=== PATIENT | male | born 1945 | race Caucasian/White ===

== ENCOUNTER 2021-08-26 02:15 | Emergency (ER) | payer MEDICARE, OTHER ==
[~2021-08-26 02:15] MED LIST: ACETAMINOPHEN-1 EAC1 PO; CLARITIN10 M2 PO; COREG6.25 MG PO; FLONASE 0.05% N16 GM; GLUCOPHAGE500 MG PO; IMDUR ER TAB 6060 MG PO; K-TAB ER10 MEQ PO; LASIX 40 MG TAB40 MG PO; LIPITOR80 MG PO; MUCINEX600 MG PO; NITROSTAT0.4 MG SL; NORVASC5 MG PO; OMEGA-31000 MG PO; PLAVIX75 MG PO; PROAIR HFA8.5 GM INH; PROTONIX 40 MG40 M1 PO; SINGULAIR10 MG PO
[2021-08-26 03:35] LABS: HEMOGLOBIN 14.2 gm/dl (14.0-17.5); RED BLOOD COUNT 4.53 M/UL (4.20-5.50); WHITE BLOOD COUNT 10.8 K/UL (4.5-11.0)
[2021-08-26 03:37] LABS: BUN/CREATININE RATIO 19 (0-10)
[2021-08-26] MEDS ORDERED: DELSYM30 MG/5 ML PO (05:34)
[2021-08-26] MEDS ORDERED: FLONASE 0.05% N16 GM (05:34)
[2021-08-26] MEDS ORDERED: DOXYCYCLINE HY100 M2 PO (05:34)
[2021-08-26] MEDS ORDERED: ZYRTEC10 MG PO (05:34)
== END 2021-08-26 05:50 | disposition home or self-care (01) ==
LOC: ER1 02:15
PROVIDERS: Physician Assistant Medical
DX: J44.1 Chronic obstructive pulmonary disease with (acute) exacerbation (principal); I11.0 Hypertensive heart disease with heart failure; I50.9 Heart failure, unspecified; E78.5 Hyperlipidemia, unspecified; F17.210 Nicotine dependence, cigarettes, uncomplicated; Z90.49 Acquired absence of other specified parts of digestive tract; Z95.1 Presence of aortocoronary bypass graft; Z20.822 Contact with and (suspected) exposure to COVID-19
CPT/HCPCS: 36600; 71045; 80053; 82550; 82553; 82803; 83605; 83874; 83880; 84484; 85025; 85610; 87040; 93005; 94664; 96374; 99284; J1940; U0002

== ENCOUNTER 2021-12-18 16:23 | Inpatient (IN) | payer MEDICARE, OTHER ==
[~2021-12-18] VITALS: Ht 182.9 cm; Wt 90.7 kg
[~2021-12-18 16:23] MED LIST changes: +DELSYM30 MG/5 ML PO; +DOXYCYCLINE HY100 M2 PO; -LASIX 40 MG TAB40 MG PO; +LASIX20 MG PO; +ZYRTEC10 MG PO
[2021-12-18 17:44] LABS: HEMOGLOBIN 16.2 gm/dl (14.0-17.5); RED BLOOD COUNT 5.18 M/UL (4.20-5.50); WHITE BLOOD COUNT 12.9 K/UL (4.5-11.0)
[2021-12-18 19:05] LABS: BUN/CREATININE RATIO 23 (0-10)
[2021-12-19 09:06] LABS: HEMOGLOBIN 14.5 gm/dl (14.0-17.5); RED BLOOD COUNT 4.88 M/UL (4.20-5.50)
[2021-12-19 09:15] LABS: WHITE BLOOD COUNT 16.2 K/UL (4.5-11.0)
[2021-12-19 09:25] LABS: BUN/CREATININE RATIO 27 (0-10)
[2021-12-19] MEDS ORDERED: GLIPIZIDE5 MG PO (11:33)
[2021-12-19] MEDS ORDERED: METOPROLOL SUCC25 MG PO (11:33)
[2021-12-19] MEDS ORDERED: FERROUS SULFAT325 MG PO (11:34)
[2021-12-19] MEDS ORDERED: SUCRALFATE1 GM PO (11:34)
[2021-12-19] MEDS ORDERED: ENTRESTO 49 MG1 EACH PO (11:34)
[2021-12-19] MEDS ORDERED: ALBUTEROL2.5 MG/3 M INH (11:35)
[2021-12-19] MEDS ORDERED: ROBAXIN 750 MG750 MG PO (11:35)
[2021-12-20 06:20] LABS: HEMOGLOBIN 13.3 gm/dl (14.0-17.5); RED BLOOD COUNT 4.43 M/UL (4.20-5.50); WHITE BLOOD COUNT 14.7 K/UL (4.5-11.0)
[2021-12-20 06:43] LABS: BUN/CREATININE RATIO 32 (0-10)
--- NOTE | 2021-12-20 08:43 | NUR ---
PATIENT STATED NITROGLYCERIN WAS EFFECTIVE IN REDUCING CHEST PAIN/DISCOMFORT. PATIENT STATED HE DIDN'T NEED ANOTHER TABLET.
[2021-12-21 07:54] LABS: HEMOGLOBIN 12.7 gm/dl (14.0-17.5); RED BLOOD COUNT 4.35 M/UL (4.20-5.50); WHITE BLOOD COUNT 15.7 K/UL (4.5-11.0)
[2021-12-21 08:46] LABS: BUN/CREATININE RATIO 33 (0-10)
--- NOTE | 2021-12-21 10:24 | NUR ---
1000- PATIENT STATED HE WANTED TO SPEAK WITH DR WARREN ABOUT GOING HOME TODAY. DR WARREN IN ROOM AT THIS TIME. STATED PATIENT WOULD HAVE TO SIGN OUT AMA IF HE WANTED TO DISCHARGE TODAY. PATIENT STATED HE WOULD SIGN OUT AMA. MD FERREIRA.
[2021-12-21] MEDS ORDERED: LASIX40 MG PO (13:32)
[2021-12-21] MEDS ORDERED: DOXYCYCLINE HY100 M2 PO (13:32)
[2021-12-21] MEDS ORDERED: ELIQUIS 5 MG TAB5 MG PO (13:32)
[2021-12-21] MEDS ORDERED: OMNICEF 300 MG300 MG PO (13:47)
[2021-12-21] MEDS ORDERED: COZAAR 25MG TAB25 MG PO (13:59)
[2021-12-21] MEDS ORDERED: METOPROLOL SUCC25 MG PO (13:59)
--- NOTE | 2021-12-21 14:35 | NUR ---
PATIENT LEAVING AMA AT THIS TIME. DISCHARGE INSTRUCTIONS GIVEN TO PATIENT AND EDUCATED ON LEAVING AMA. MD AWARE. PATIENT VERBALIZED UNDERSTANDING.
== END 2021-12-21 | disposition left against medical advice (07) | DRG 291 ==
LOC: ER1 16:23 → CDU 20:31 → MED SURG 4 20:31
PROVIDERS: Internal Medicine; Student in an Organized Health Care Education/Training Program; ADMIT Internal Medicine
PROC: B24BZZZ Ultrasonography of Heart with Aorta (ICD-10-PCS; principal; 2021-12-19)
DX: I11.0 Hypertensive heart disease with heart failure (principal); J96.21 Acute and chronic respiratory failure with hypoxia; J96.22 Acute and chronic respiratory failure with hypercapnia; I50.23 Acute on chronic systolic (congestive) heart failure; Z20.822 Contact with and (suspected) exposure to COVID-19; J15.9 Unspecified bacterial pneumonia; I47.1 Supraventricular tachycardia; J44.9 Chronic obstructive pulmonary disease, unspecified; E78.5 Hyperlipidemia, unspecified; E11.9 Type 2 diabetes mellitus without complications; I42.9 Cardiomyopathy, unspecified; F17.290 Nicotine dependence, other tobacco product, uncomplicated; D50.9 Iron deficiency anemia, unspecified; I71.4 Abdominal aortic aneurysm, without rupture; I48.91 Unspecified atrial fibrillation; Z79.01 Long term (current) use of anticoagulants; Z87.11 Personal history of peptic ulcer disease; Z86.718 Personal history of other venous thrombosis and embolism; Z95.1 Presence of aortocoronary bypass graft; Z95.5 Presence of coronary angioplasty implant and graft; Z90.49 Acquired absence of other specified parts of digestive tract; Z82.49 Family history of ischemic heart disease and other diseases of the circulatory system
CPT/HCPCS: ECHO; 36415; 36600; 71045; 71046; 80048; 80053; 82550; 82553; 82803; 82962; 83735; 83880; 84484; 85025; 85027; 86140; 93005; 93306; 93308; 94640; 94664; 94760; 96374; 96375; 96376; 99285; J0456; J0696; J1650; J1940; J2920; J3475; J7030; P9047; Q9957; U0002

== ENCOUNTER 2022-02-04 16:34 | Inpatient (IN) | payer MEDICARE, OTHER ==
[~2022-02-04] VITALS: Ht 188 cm; Wt 99.9 kg
[~2022-02-04 16:34] MED LIST changes: +COZAAR 25MG TAB25 MG PO; +ELIQUIS 5 MG TAB5 MG PO; +ENTRESTO 49 MG1 EACH PO; +FERROUS SULFAT325 MG PO; +LASIX40 MG PO; +METOPROLOL SUCC25 MG PO; -NITROSTAT0.4 MG SL; +OMNICEF 300 MG300 MG PO; -PROAIR HFA8.5 GM INH; -PROTONIX 40 MG40 M1 PO; +ROBAXIN 750 MG750 MG PO
[2022-02-04 19:08] LABS: HEMOGLOBIN 12.7 gm/dl (14.0-17.5); RED BLOOD COUNT 4.17 M/UL (4.20-5.50); WHITE BLOOD COUNT 20.3 K/UL (4.5-11.0)
[2022-02-05 07:03] LABS: HEMOGLOBIN 13.1 gm/dl (14.0-17.5); RED BLOOD COUNT 4.5 M/UL (4.20-5.50); WHITE BLOOD COUNT 20.3 K/UL (4.5-11.0)
[2022-02-05 07:08] LABS: BUN/CREATININE RATIO 57 (0-10)
[2022-02-05] MEDS ORDERED: LASIX 40 MG TAB40 MG PO (09:14)
[2022-02-05] MEDS ORDERED: TOPROL XL25 MG PO (09:18)
[2022-02-05] MEDS ORDERED: CLARITIN10 MG PO (09:37)
[2022-02-05] MEDS ORDERED: COZAAR25 MG PO (10:22)
[2022-02-05] MEDS ORDERED: ELIQUIS5 MG PO (10:26)
[2022-02-05] MEDS ORDERED: ENTRESTO 49 MG1 EACH PO (10:32)
[2022-02-05] MEDS ORDERED: METFORMIN HCL1000 MG PO (10:38)
[2022-02-05] MEDS ORDERED: TRELEGY ELLIPT1 EACH INH (10:40)
[2022-02-05] MEDS ORDERED: ASPIRIN EC81 MG PO (10:50)
[2022-02-05] MEDS ORDERED: GLIPIZIDE5 MG PO (11:33)
[2022-02-05] MEDS ORDERED: CARAFATE1 GM PO (11:34)
[2022-02-05] MEDS ORDERED: ALBUTEROL2.5 MG/3 M INH (11:35)
[2022-02-05] MEDS ORDERED: NITROSTAT0.4 MG SL (21:19)
[2022-02-05] MEDS ORDERED: PROAIR HFA8.5 GM INH (21:20)
[2022-02-05] MEDS ORDERED: PROTONIX 40 MG40 M1 PO (21:37)
--- NOTE | 2022-02-06 07:51 | NUR ---
Patient's left foot noted to be purple while right foot was noted as pink with good pulse Doppler obtained no left foot pulse noted clinical ob hospitalist called, x2 no answer [facility] hospitalist attempted to call x1 no answer [facility] Pt going to [facility] for PE protocol at this time....
--- NOTE | 2022-02-06 10:42 | NUR ---
KENN NOTIFIED OF RADIOLOGIST CALLING TO CONFIRM PE IN LEFT LOWER LOBE MD AWARE WILL WAIT FOR ODERS
[2022-02-06 11:01] LABS: HEMOGLOBIN 11.5 gm/dl (14.0-17.5); RED BLOOD COUNT 3.84 M/UL (4.20-5.50); WHITE BLOOD COUNT 10.6 K/UL (4.5-11.0)
[2022-02-06] MEDS ORDERED: ALDACTONE25 MG PO (12:31)
[2022-02-06] MEDS ORDERED: QNASL CHILDREN6.8 GM INH (12:35)
[2022-02-06] MEDS ORDERED: ZAROXOLYN/DIUL2.5 MG PO (12:37)
[2022-02-06] MEDS ORDERED: FLOVENT DISKUS50 MCG INH (12:44)
[2022-02-06] MEDS ORDERED: NORVASC5 MG PO (12:46)
[2022-02-06] MEDS ORDERED: COREG6.25 MG PO (12:47)
[2022-02-06] MEDS ORDERED: FISH OIL CONCE1 EACH PO (12:56)
[2022-02-06] MEDS ORDERED: SINGULAIR10 MG PO (12:59)
[2022-02-06] MEDS ORDERED: POTASSIUM CHLO10 ME1 PO (13:05)
[2022-02-06] MEDS ORDERED: METOPROLOL SUCC25 MG PO (18:37)
[2022-02-06] MEDS ORDERED: METFORMIN HCL1000 MG PO (18:37)
== END 2022-02-07 14:45 | disposition short-term general hospital (02) | DRG 175 ==
LOC: ER1 16:34 → M/S 21:06
PROVIDERS: Emergency Medicine; Internal Medicine; ADMIT Internal Medicine
DX: I26.99 Other pulmonary embolism without acute cor pulmonale (principal); J18.9 Pneumonia, unspecified organism; J96.21 Acute and chronic respiratory failure with hypoxia; I50.23 Acute on chronic systolic (congestive) heart failure; R65.10 Systemic inflammatory response syndrome (SIRS) of non-infectious origin without acute organ dysfunction; J44.1 Chronic obstructive pulmonary disease with (acute) exacerbation; E87.1 Hypo-osmolality and hyponatremia; N17.9 Acute kidney failure, unspecified; E87.2 Acidosis; J44.0 Chronic obstructive pulmonary disease with (acute) lower respiratory infection; I13.0 Hypertensive heart and chronic kidney disease with heart failure and stage 1 through stage 4 chronic kidney disease, or unspecified chronic kidney disease; Z20.822 Contact with and (suspected) exposure to COVID-19; K21.9 Gastro-esophageal reflux disease without esophagitis; I71.4 Abdominal aortic aneurysm, without rupture; E11.22 Type 2 diabetes mellitus with diabetic chronic kidney disease; F17.210 Nicotine dependence, cigarettes, uncomplicated; I77.89 Other specified disorders of arteries and arterioles; I48.0 Paroxysmal atrial fibrillation; Z79.01 Long term (current) use of anticoagulants; Z86.718 Personal history of other venous thrombosis and embolism; Z79.4 Long term (current) use of insulin; Z87.11 Personal history of peptic ulcer disease; Z90.49 Acquired absence of other specified parts of digestive tract; Z95.1 Presence of aortocoronary bypass graft; Z82.49 Family history of ischemic heart disease and other diseases of the circulatory system; Z95.5 Presence of coronary angioplasty implant and graft
CPT/HCPCS: 36415; 36600; 71045; 71046; 75635; 80048; 80053; 81001; 82550; 82553; 82803; 82962; 83036; 83605; 83880; 84484; 85025; 85027; 85730; 86140; 87040; 87086; 93005; 93926; 94640; 94664; 94760; 96374; 96375; 99285; J0456; J0696; J1644; J1940; J7030; Q9967; U0002

== ENCOUNTER 2022-02-17 11:30 | Emergency (ER) | payer MEDICARE, OTHER ==
[~2022-02-17 11:30] MED LIST changes: +ALBUTEROL2.5 MG/3 M INH; +ALDACTONE25 MG PO; +ASPIRIN EC81 MG PO; +CARAFATE1 GM PO; +CLARITIN10 MG PO; +COZAAR25 MG PO; +ELIQUIS5 MG PO; +FISH OIL CONCE1 EACH PO; +FLOVENT DISKUS50 MCG INH; +GLIPIZIDE5 MG PO; +LASIX 40 MG TAB40 MG PO; +METFORMIN HCL1000 MG PO; +NITROSTAT0.4 MG SL; +POTASSIUM CHLO10 ME1 PO; +PROAIR HFA8.5 GM INH; +PROTONIX 40 MG40 M1 PO; +QNASL CHILDREN6.8 GM INH; +TOPROL XL25 MG PO; +TRELEGY ELLIPT1 EACH INH; +ZAROXOLYN/DIUL2.5 MG PO
[2022-02-17 12:21] LABS: HEMOGLOBIN 8.3 gm/dl (14.0-17.5); RED BLOOD COUNT 2.78 M/UL (4.20-5.50)
== END 2022-02-17 14:14 | disposition other institution (70) ==
LOC: ER1 11:30
PROVIDERS: Physician Assistant
DX: K62.5 Hemorrhage of anus and rectum (principal); J18.9 Pneumonia, unspecified organism; R04.0 Epistaxis
CPT/HCPCS: 36430; 71045; 80053; 82550; 82553; 84484; 85025; 85610; 86850; 86900; 86901; 86920; 93005; 94664; 94760; 96374; 99285; J0692; J7168; P9016